=== PATIENT | female | born 1955 | race Caucasian/White ===

== ENCOUNTER 2018-05-28 06:46 | Outpatient (CLI) | payer OTHER ==
--- NOTE | 2018-05-28 08:02 | ULT ---
BILATERAL LOWER EXTREMITY VENOUS DUPLEX EXAM: Date: 05/28/18 TECHNIQUE: Deep veins of both lower extremities evaluated with color Doppler, spectral analysis, and compression . INDICATION: Lower extremity pain and edema. FINDINGS: Deep veins of both lower extremities show normal blood flow and compression. No evidence of deep veno us thrombosis identified. IMPRESSION: Negative bilateral lower extremity venous duplex study. POS: [facility]
== END 2018-05-28 06:47 | disposition home or self-care (01) ==
LOC: BICULT 06:46
PROVIDERS: ATTEND Nurse Practitioner Family
DX: M79.661 Pain in right lower leg (principal); M79.605 Pain in left leg; Z86.718 Personal history of other venous thrombosis and embolism
CPT/HCPCS: 93970

== ENCOUNTER 2021-03-18 23:28 | Inpatient (IN) | payer MEDICARE ==
[2021-03-19 00:24] LABS: INR-International Normal Ratio 1.3; Prothrombin Time 16.6 sec (12.0-14.7)
[2021-03-19 00:25] LABS: PTT 49.9 sec (22.9-36.1)
[2021-03-19] MEDS ORDERED: Morphine 4 MG/ML VIAL ONE (00:25)
[2021-03-19] MEDS ORDERED: Ondansetron PF 4 MG/2 ML Vial ONE (00:25)
[2021-03-19 00:40] LABS: SARS-CoV-2 NAA Rapid Test DETECTED (NotDetected)
[2021-03-19 02:28] LABS: Troponin I Less than 0.010 ng/mL (< 0.028)
[2021-03-19] MEDS ORDERED: Ondansetron PF 4 MG/2 ML Vial IVP PRN (02:28)
[2021-03-19] MEDS ORDERED: Acetaminophen 650 MG Suppository PR PRN (02:28)
[2021-03-19] MEDS ORDERED: Acetaminophen 325 MG TAB PO PRN (02:28)
[2021-03-19] MEDS ORDERED: Ondansetron ODT 4 MG TAB PO PRN (02:28)
[2021-03-19] MEDS ORDERED: HYDROcodone/Acetaminophen 5/325 mg Tablet ONE (04:34)
[2021-03-19] MEDS: HYDROcodone/Acetaminophen 5/325 mg Tablet PO PRN ×4 (04:51→20:55)
[2021-03-19 05:39] LABS: #Monocytes 1.5 thou/uL (0.11-0.59); #Neutrophils 10.8 thou/uL (1.40-6.50); %Basophils 0.2 % (0.0-1.0); %Eosinophils 0.1 % (0.0-10.0); %Lymphocytes 14.1 % (21.0-51.0); %Monocytes 10.4 % (0.0-10.0); %Neutrophils 75.1 % (42.0-75.0); Hemoglobin 12.2 g/dL (12.0-16.0); Mean Corpuscular HGB CONC 33.8 g/dL (32.0-36.0); Mean Corpuscular Hemoglobin 31.2 pg (27.0-31.0); Mean Corpuscular Volume 92.3 fL (78.0-98.0); Mean Platelet Volume 7.5 fL (7.4-10.4); Platelet Count 257 thou/uL (130-400); RBC Distribution Width 11.6 % (11.5-14.5); White Blood Cell (WBC) Count 14.4 thou/uL (4.8-10.8)
[2021-03-19 05:46] LABS: Anion Gap 13 mmol/L (10-20); BUN (Urea Nitrogen) 13 mg/dL (9.8-20.1); Calc. Creatinine Clearance 83 mL/min (70-130); Calcium 9.6 mg/dL (7.8-10.44); Carbon Dioxide 28 mmol/L (23-31); Chloride 96 mmol/L (98-107); Glucose 101 mg/dL (80-115); Potassium 4.2 mmol/L (3.5-5.1); Sodium 133 mmol/L (136-145)
[2021-03-19 05:50] LABS: Troponin I Less than 0.010 ng/mL (< 0.028)
[2021-03-19 06:50] VITALS: BMI 24.8
[2021-03-19] MEDS: Enoxaparin Sodium 60 MG/0.6 ML SYRINGE SC SCH ×2 (09:13→20:55)
[2021-03-19 13:17] LABS: INR-International Normal Ratio 1.4
[2021-03-19 13:19] LABS: PTT 53.8 sec (22.9-36.1)
[2021-03-19 13:22] LABS: D-Dimer Test 2.18 *mcg/mL (0.27-0.43)
[2021-03-19] MEDS ORDERED: Ketorolac Tromethamine 30 MG/ML VIAL IVP SCH (15:54)
[2021-03-20] MEDS: HYDROcodone/Acetaminophen 5/325 mg Tablet PO PRN ×3 (02:46→21:29)
[2021-03-20 04:35] LABS: #Lymphocytes 2.1 thou/uL (1.20-3.40); #Monocytes 1.4 thou/uL (0.11-0.59); #Neutrophils 10.5 thou/uL (1.40-6.50); %Basophils 0.1 % (0.0-1.0); %Eosinophils 0.1 % (0.0-10.0); %Lymphocytes 14.9 % (21.0-51.0); %Neutrophils 74.9 % (42.0-75.0); Hemoglobin 12.4 g/dL (12.0-16.0); Mean Corpuscular HGB CONC 33.4 g/dL (32.0-36.0); Mean Corpuscular Hemoglobin 30.9 pg (27.0-31.0); Mean Corpuscular Volume 92.4 fL (78.0-98.0); Mean Platelet Volume 7.3 fL (7.4-10.4); Platelet Count 294 thou/uL (130-400); RBC Distribution Width 11.4 % (11.5-14.5); Red Blood Cell (RBC) Count 4.02 mill/uL (4.20-5.40)
[2021-03-20 04:46] LABS: Anion Gap 15 mmol/L (10-20); BUN (Urea Nitrogen) 11 mg/dL (9.8-20.1); Calc. Creatinine Clearance 86 mL/min (70-130); Calcium 9.4 mg/dL (7.8-10.44); Carbon Dioxide 27 mmol/L (23-31); Chloride 97 mmol/L (98-107); Glucose 107 mg/dL (80-115); Potassium 3.5 mmol/L (3.5-5.1); Sodium 135 mmol/L (136-145)
[2021-03-20] MEDS: Enoxaparin Sodium 60 MG/0.6 ML SYRINGE SC SCH (08:12)
[2021-03-20 13:16] LABS: Factor VIII Test 317.3 % ACTIVE (56-157); Protein C Activity 113 % (78-152)
[2021-03-20] MEDS: Guaifenesin DM 100-10/5 ML UDCUP PO PRN ×2 (15:48→21:45)
[2021-03-20] MEDS: Apixaban 5 MG TAB PO SCH (21:30)
[2021-03-21 04:56] LABS: Anion Gap 12 mmol/L (10-20); BUN (Urea Nitrogen) 9 mg/dL (9.8-20.1); Calc. Creatinine Clearance 96 mL/min (70-130); Calcium 9.2 mg/dL (7.8-10.44); Carbon Dioxide 28 mmol/L (23-31); Chloride 99 mmol/L (98-107); Glucose 114 mg/dL (80-115); Potassium 3.5 mmol/L (3.5-5.1); Sodium 135 mmol/L (136-145)
[2021-03-21] MEDS: HYDROcodone/Acetaminophen 5/325 mg Tablet PO PRN (07:20)
[2021-03-21 07:56] VITALS: TEMP 98.7
[2021-03-21] MEDS: Apixaban 5 MG TAB PO SCH (08:30)
[2021-03-21] MEDS: Guaifenesin DM 100-10/5 ML UDCUP PO PRN (08:31)
[2021-03-21 11:51] VITALS: BP 112/60
[2021-03-21 13:07] LABS: Cardiolipin IgA Ab 4.1 APL-U/mL (<14 Negative); Cardiolipin IgG Ab 0.5 GPL-U/mL (<10 Negative); Cardiolipin IgM Ab 4.6 MPL-U/mL (<10 Negative); EliA APS New Method **** NEW METHOD ****
[2021-03-22 14:22] LABS: HEX PHOS LA Tube 1 63.5 SEC; HEX PHOS LA Tube 2 41.9 SEC; Hexagonal Phospholipid Neut 21.6 SEC (0-8.0)
[2021-03-27] MEDS ORDERED: Apixaban 5 MG TAB PO SCH (09:00)
== END 2021-03-21 13:50 | disposition home or self-care (01) | DRG 177 ==
LOC: ERS 23:28 → ERHOLD 03-19 00:42 → 2NO 03-19 05:57
PROVIDERS: ADMIT Student in an Organized Health Care Education/Training Program; ATTEND Hospitalist
PROC: 8E0ZXY6 Isolation (ICD-10-PCS; principal; 2021-03-19)
DX: U07.1 COVID-19 (principal); I26.99 Other pulmonary embolism without acute cor pulmonale; J12.82 Pneumonia due to coronavirus disease 2019; J96.01 Acute respiratory failure with hypoxia; I45.10 Unspecified right bundle-branch block; F17.210 Nicotine dependence, cigarettes, uncomplicated; Z90.710 Acquired absence of both cervix and uterus; Z90.89 Acquired absence of other organs; Z79.82 Long term (current) use of aspirin; Z86.718 Personal history of other venous thrombosis and embolism
CPT/HCPCS: 0240U; 36415; 71045; 80048; 83090; 83880; 84145; 84484; 85025; 85240; 85300; 85303; 85305; 85307; 85379; 85598; 85610; 85730; 86140; 86147; 93005; 93306; 93970; 96374; 96375; J1650; J1956; J2270; J2405

== ENCOUNTER 2021-07-15 08:45 | Outpatient (CLI) | payer MEDICARE, OTHER | END 2021-07-15 08:46 | disposition home or self-care (01) | LOC: CT 08:45 | PROVIDERS: ATTEND Internal Medicine Pulmonary Disease | DX: I26.99 Other pulmonary embolism without acute cor pulmonale (principal) | CPT/HCPCS: 71275; 82565 ==

== ENCOUNTER 2022-01-15 12:58 | Outpatient (CLI) | payer MEDICARE | END 2022-01-15 12:59 | disposition home or self-care (01) | LOC: RAD 12:58 | PROVIDERS: ATTEND Internal Medicine | DX: R06.00 Dyspnea, unspecified (principal); R91.8 Other nonspecific abnormal finding of lung field | CPT/HCPCS: 71046 ==

== ENCOUNTER 2022-04-22 10:11 | Outpatient (CLI) | payer MEDICARE | END 2022-04-22 10:12 | disposition home or self-care (01) | LOC: MRI 10:11 | PROVIDERS: ATTEND Nurse Practitioner Family | DX: M54.2 Cervicalgia (principal); M25.59 Pain in other specified joint; M47.812 Spondylosis without myelopathy or radiculopathy, cervical region; M50.30 Other cervical disc degeneration, unspecified cervical region; M47.813 Spondylosis without myelopathy or radiculopathy, cervicothoracic region; M48.02 Spinal stenosis, cervical region; M48.03 Spinal stenosis, cervicothoracic region; I26.99 Other pulmonary embolism without acute cor pulmonale | CPT/HCPCS: 36415; 72141; 85379 ==

== ENCOUNTER 2025-05-03 09:56 | Inpatient (IN) | payer MEDICARE ==
[2025-05-03 10:36] LABS: #Basophils 0.11 10x3/uL (0.0-0.2); #Eosinophils 0.03 10x3/uL (0.0-0.7); #Monocytes 0.59 10x3/uL (0.11-0.59); #Neutrophils 8.31 10x3/uL (1.40-6.50); %Basophils 1.0 % (0.0-1.0); %Eosinophils 0.3 % (0.0-10.0); %Lymphocytes 21.3 % (21.0-51.0); %Monocytes 5.1 % (0.0-10.0); %Neutrophils 72.0 % (42.0-75.0); Hematocrit 41.5 % (36.0-47.0); Hemoglobin 14.0 g/dL (12.0-16.0); Mean Corpuscular Hemoglobin 30.2 pg (27.0-31.0); Mean Corpuscular Volume 89.4 fL (78.0-98.0); Platelet Count 382 10x3/uL (130-400); Red Blood Cell (RBC) Count 4.64 mill/uL (4.20-5.40); White Blood Cell (WBC) Count 11.53 10x3/uL (4.8-10.8)
[2025-05-03 10:57] LABS: ALT (SGPT) 9 U/L (Less than 34); AST (SGOT) 19 U/L (11-34); Albumin 3.9 g/dL (3.1-4.5); Alkaline Phosphatase 83 U/L (40-110); Anion Gap 16 mmol/L (10-20); BUN (Urea Nitrogen) 10 mg/dL (9.8-20.1); Bilirubin, Total 0.5 mg/dL (0.3-1.2); Calc. Creatinine Clearance 0 mL/min (70-130); Calcium 10.3 mg/dL (7.8-10.44); Carbon Dioxide 22 mmol/L (23-31); Chloride 107 mmol/L (98-107); Globulin 3.9 g/dL (2.4-3.5); Glucose 111 mg/dL (80-115); Potassium 4.7 mmol/L (3.5-5.1); Sodium 140 mmol/L (136-145)
[2025-05-03] MEDS ORDERED: Cefepime 2 GM VIAL ONE (12:13)
[2025-05-03] MEDS ORDERED: Senokot S 8.6-50 MG TAB PO PRN (12:58)
[2025-05-03] MEDS ORDERED: Calcium Carbonate 500 MG ChewTAB PO PRN (12:58)
[2025-05-03] MEDS ORDERED: Acetaminophen 325 MG TAB PO PRN (12:58)
[2025-05-03] MEDS ORDERED: Ondansetron PF 4 MG/2 ML Vial IVP PRN (12:58)
[2025-05-03] MEDS ORDERED: Melatonin 3 MG TAB PO PRN (12:58)
[2025-05-03] MEDS ORDERED: Iopamidol-370 76% 500 ML MDV (1 ML CHARGE) ONE (13:05)
[2025-05-03 13:55] VITALS: BMI 26.2
[2025-05-03] MEDS: Azithromycin 500 MG in Sodium Chloride 0.9% 250 ML 250 ML IVPB SCH (15:14)
[2025-05-03] MEDS: Guaifenesin DM 100-10/5 ML UDCUP PO PRN (15:15)
[2025-05-03 19:53] LABS: Legionella Urinary Ag Negative (Negative); Strep pneumo Urine Ag NEGATIVE (NEGATIVE)
[2025-05-03] MEDS: cefTRIAXone\\ROCEPHIN 1 GM in Sodium Chloride 0.9% 100 ML IVPB SCH (21:24)
[2025-05-04 06:37] LABS: #Basophils 0.09 10x3/uL (0.0-0.2); #Eosinophils 0.08 10x3/uL (0.0-0.7); #Monocytes 0.47 10x3/uL (0.11-0.59); #Neutrophils 3.20 10x3/uL (1.40-6.50); %Basophils 1.4 % (0.0-1.0); %Eosinophils 1.2 % (0.0-10.0); %Lymphocytes 40.6 % (21.0-51.0); %Monocytes 7.2 % (0.0-10.0); %Neutrophils 49.3 % (42.0-75.0); Hematocrit 37.7 % (36.0-47.0); Hemoglobin 12.1 g/dL (12.0-16.0); Mean Corpuscular Hemoglobin 29.0 pg (27.0-31.0); Mean Corpuscular Volume 90.4 fL (78.0-98.0); Platelet Count 318 10x3/uL (130-400); Red Blood Cell (RBC) Count 4.17 mill/uL (4.20-5.40); White Blood Cell (WBC) Count 6.50 10x3/uL (4.8-10.8)
[2025-05-04 06:51] LABS: Anion Gap 18 mmol/L (10-20); BUN (Urea Nitrogen) 14 mg/dL (9.8-20.1); Calc. Creatinine Clearance 110 mL/min (70-130); Calcium 9.0 mg/dL (7.8-10.44); Carbon Dioxide 25 mmol/L (23-31); Chloride 105 mmol/L (98-107); Glucose 100 mg/dL (80-115); Potassium 4.0 mmol/L (3.5-5.1); Sodium 144 mmol/L (136-145)
[2025-05-04 08:04] VITALS: TEMP 98
[2025-05-04] MEDS ORDERED: Benzocaine/Menthol 1 LOZ LOZ PO PRN (23:10)
[2025-05-05 07:09] LABS: Anion Gap 15 mmol/L (10-20); BUN (Urea Nitrogen) 11 mg/dL (9.8-20.1); Calc. Creatinine Clearance 111 mL/min (70-130); Calcium 9.0 mg/dL (7.8-10.44); Carbon Dioxide 21 mmol/L (23-31); Chloride 112 mmol/L (98-107); Glucose 88 mg/dL (80-115); Potassium 4.0 mmol/L (3.5-5.1); Sodium 144 mmol/L (136-145)
[2025-05-05 07:43] LABS: #Basophils 0.06 10x3/uL (0.0-0.2); #Eosinophils 0.03 10x3/uL (0.0-0.7); #Monocytes 0.47 10x3/uL (0.11-0.59); #Neutrophils 3.91 10x3/uL (1.40-6.50); %Basophils 0.8 % (0.0-1.0); %Eosinophils 0.4 % (0.0-10.0); %Lymphocytes 38.3 % (21.0-51.0); %Monocytes 6.5 % (0.0-10.0); %Neutrophils 53.9 % (42.0-75.0); Hematocrit 36.4 % (36.0-47.0); Hemoglobin 11.5 g/dL (12.0-16.0); Mean Corpuscular Hemoglobin 29.7 pg (27.0-31.0); Mean Corpuscular Volume 94.1 fL (78.0-98.0); Platelet Count 294 10x3/uL (130-400); Red Blood Cell (RBC) Count 3.87 mill/uL (4.20-5.40); White Blood Cell (WBC) Count 7.26 10x3/uL (4.8-10.8)
[2025-05-05 08:21] VITALS: BP 132/82
== END 2025-05-05 11:03 | disposition home or self-care (01) | DRG 195 ==
LOC: ERS 09:56 → T4-B 13:20 → OBSVTOIN 05-04 13:18
PROVIDERS: ADMIT Internal Medicine; ATTEND Hospitalist
DX: J18.9 Pneumonia, unspecified organism (principal); I45.10 Unspecified right bundle-branch block; Z86.711 Personal history of pulmonary embolism; Z86.718 Personal history of other venous thrombosis and embolism; Z98.890 Other specified postprocedural states; Z90.89 Acquired absence of other organs; Z90.710 Acquired absence of both cervix and uterus; Z88.0 Allergy status to penicillin; Z86.16 Personal history of COVID-19; Z87.891 Personal history of nicotine dependence
CPT/HCPCS: 36415; 71046; 71275; 80048; 80053; 83605; 84484; 85025; 85379; 87040; 87070; 87205; 87449; 87899; 93005; 96365; 96366; 96367; 96374; 96375; G0378; J0456; J0692; J0696; J7050; Q9967